=== PATIENT | female | born 1990 | race Caucasian/White ===

== ENCOUNTER 2023-11-02 23:34 | Emergency (ER) | payer OTHER ==
[~2023-11-02] VITALS: Ht 167.6 cm; Wt 117.9 kg
[2023-11-03 00:01] VITALS: TEMP 97.5
[2023-11-03] MEDS ORDERED: ONDANSETRON HCL/PF 4 MG/2 ML VIAL ONE (00:24)
[2023-11-03] MEDS ORDERED: MORPHINE SULFATE INJ 4 MG/ML DISP.SYRIN ONE (00:24)
[2023-11-03] MEDS: IV NS 0.9% 500 ML BAG IV ONE (00:35)
[2023-11-03] MEDS: ONDANSETRON HCL/PF 4 MG/2 ML VIAL IVP ONE (00:35)
[2023-11-03] MEDS: MORPHINE SULFATE INJ 2 MG/ML DISP.SYRIN IV ONE (00:37)
[2023-11-03 00:53] LABS: BASOPHILS # (AUTO) 0.1 K/uL (0.0-0.2); BASOPHILS % (AUTO) 0.5 % (0.0-2.0); EOSINOPHILS # (AUTO) 0.1 K/uL (0.0-0.7); EOSINOPHILS % (AUTO) 0.7 % (0.0-6.0); HEMATOCRIT 38 % (33-45); HEMOGLOBIN 12.5 g/dL (11.5-14.8); LYMPHOCYTES # (AUTO) 1.9 K/uL (0.8-4.8); LYMPHOCYTES % (AUTO) 15.9 % (20.0-44.0); MEAN CORPUSCULAR HEMOGLOBIN 27 PG (26.0-33.0); MEAN CORPUSCULAR HGB CONC 33 g/dl (31.0-36.0); MEAN CORPUSCULAR VOLUME 80 fL (82-100); MONOCYTES # (AUTO) 0.6 K/uL (0.1-1.30); MONOCYTES % (AUTO) 5.3 % (2.0-12.0); NEUTROPHILS # (AUTO) 9.1 K/uL (1.8-8.9); NEUTROPHILS % (AUTO) 77.6 % (43.0-81.0); PLATELET COUNT (AUTO) 345 K/uL (150-450); RED CELL DISTRIBUTION WIDTH 13.9 % (11.5-15.0); WHITE BLOOD COUNT (AUTO) 11.7 K/uL (4.3-11.0)
[2023-11-03 01:11] LABS: INR 0.94 (0.91-1.10); PARTIAL THROMBOPLASTIN TIME 29.1 SEC (24.3-34.3)
[2023-11-03 01:39] LABS: APPEARANCE,URINE SLIGHTLY CLOUDY (CLEAR); BILIRUBIN,URINE NEGATIVE (NEGATIVE); BLOOD, URINE NEGATIVE Ery/uL (NEGATIVE); COLOR,URINE YELLOW (YELLOW); KETONES,URINE 1+ mg/dL (NEGATIVE); LEUKOCYTE ESTERASE ,URINE 2+ (NEGATIVE); NITRITE, URINE NEGATIVE (NEGATIVE); PH,URINE 7.5 (5.0-8.0); PROTEIN,URINE NEGATIVE (NEGATIVE); UGLUCOSE NEGATIVE (NEGATIVE); UROBILINOGEN,URINE 0.2 EU/dL (0.2)
[2023-11-03 01:45] LABS: PREGNANCY TEST URINE QUAL NEGATIVE (NEGATIVE)
[2023-11-03] MEDS ORDERED: NITR100C6 PO (01:46)
[2023-11-03 01:52] LABS: ADD URINE CULTURE YES; BACTERIA,URINE Few /HPF (None Seen); SQUAMOUS EPITHELIAL CELL,UR Rare /HPF (None Seen); WBC,URINE 21-50 /HPF (0-3)
[2023-11-03] MEDS ORDERED: KETOROLAC TROMETHAMINE INJ 30 MG/ML VIAL ONE (02:02)
[2023-11-03] MEDS: KETOROLAC TROMETHAMINE INJ 30 MG/ML VIAL IV ONE (02:07)
[2023-11-03 02:14] LABS: CALCIUM, SERUM 9.5 mg/dL (8.5-10.1); CARBON DIOXIDE 25 mmol/L (21-32); CHLORIDE 101 mmol/L (98-107); CREATININE 0.8 mg/dL (0.6-1.3); GLUCOSE 141 mg/dL (74-106); POTASSIUM 3.5 mmol/L (3.5-5.1); SODIUM SERUM 138 mmol/L (136-145); UREA NITROGEN, BLOOD 10 mg/dL (7-18)
[2023-11-03 02:17] LABS: ALANINE AMINOTRANSFERASE 31 U/L (12-78); ALBUMIN 3.5 g/dL (3.4-5.0); ALKALINE PHOSPHATASE 93 U/L (46-116); ASPARTATE AMINOTRANSFERASE 17 U/L (15-37); BILIRUBIN,DIRECT 0.1 mg/dL (0.0-0.2); BILIRUBIN,TOTAL 0.4 mg/dL (0.2-1.0); LIPASE 36 U/L (16-77); TOTAL PROTEIN, SERUM 7.3 g/dL (6.4-8.2)
[2023-11-03 03:10] VITALS: BP 135/89; O2SAT 100
== END 2023-11-03 03:10 | disposition home or self-care (01) ==
LOC: ER 23:46
DX: K80.70 Calculus of gallbladder and bile duct without cholecystitis without obstruction (principal); N39.0 Urinary tract infection, site not specified; E66.01 Morbid (severe) obesity due to excess calories; R10.2 Pelvic and perineal pain; Z79.899 Other long term (current) drug therapy; Z68.41 Body mass index [BMI] 40.0-44.9, adult
CPT/HCPCS: 99285; 96374; 76705; 96375; 71045; 93005; 85025; 80048; 87086; 83690; 80076; 84703; 81001; 36415; 84484; 85730; J2270; J1885; J2405; J7040